=== PATIENT | male | born 1945 | race Caucasian/White ===

== ENCOUNTER 2020-12-31 08:56 | Day surgery (SDC) | payer MEDICARE ==
[2020-12-28 12:03] LABS: BASOPHILS % (AUTO) 0.6 % (0-1); EOSINOPHILS # (AUTO) 0.1 X10'3 (0-0.9); EOSINOPHILS % (AUTO) 2.1 % (0-6); LYMPHOCYTES # (AUTO) 1.1 X10'3 (1.1-4.8); LYMPHOCYTES % (AUTO) 18.8 % (21-51); MEAN CORPUSCULAR HGB CONC 33.3 g/dL (33.0-36.5); MEAN PLATELET VOLUME 8.5 FL (7.4-10.4); MONOCYTES # (AUTO) 0.7 X10'3 (0-0.9); MONOCYTES % (AUTO) 12.4 % (2-12); NEUTROPHILS # (AUTO) 3.8 X10'3 (1.8-7.7); NEUTROPHILS % (AUTO) 66.1 % (42-75); PRE OP HEMATOCRIT 38.8 % (42.0-52.0); PRE OP HEMOGLOBIN 12.9 g/dL (14.0-17.9); PRE OP PLATELET COUNT 183 X10'3 (140-440); RED BLOOD COUNT 4.32 X10'6 (4.70-6.10); RED CELL DISTRIBUTION WIDTH 13.3 % (11.5-14.5)
[2020-12-28 12:15] LABS: PRE OP PROTIME 20.3 SECONDS (9.0-12.0)
[2020-12-28 12:22] LABS: ALBUMIN 3.4 G/DL (3.4-5.0); ALBUMIN/GLOBULIN RATIO 0.8 (1.1-1.5); ALKALINE PHOSPHATASE 83 IU/L (46-116); BLOOD UREA NITROGEN 24 MG/DL (7-18); BUN/CREATININE RATIO 20.2 (5.4-32.0); CALCIUM 8.9 MG/DL (8.5-10.1); CHLORIDE 102 MMOL/L (99-107); CREATININE 1.19 MG/DL (0.60-1.10); PRE OP ALT 37 U/L (30-65); PRE OP ANION GAP 7 (8-16); PRE OP AST 27 U/L (10-37); PRE OP BILIRUB, TOTAL 0.6 MG/DL (0.0-1.0); PRE OP GLUCOSE 93 MG/DL (70-104); PRE OP SODIUM 137 MMOL/L (135-145); TOTAL PROTEIN 7.7 G/DL (6.4-8.2); eGFR 59 ML/MIN
[~2020-12-31] VITALS: Ht 182.9 cm; Wt 79.4 kg
[~2020-12-31 08:56] MED LIST: ASCO500C17 PO; CARV6.253 PO; CEPH500C2 PO; CLIN-30 PO; ENAL10TA19 PO; FIBER; LEVO25TA2 PO; LIDOcaine 1% 30ml preserv. free vial ONE; MULT-1085 PO; OMEG100T PO; SPIR25TA5 PO; VITA-3 PO; WARF2.5T82 PO; [UNRECOGNIZED DRUG - CODE]; ceFAZolin 2gm in dextrose, iso 50 ML IV ONE; clindamycin 600mg/D5W 50ml 50 ML IV ONE; famotidine 20mg tablet PO ONE; ringers solution, lacted 1,000 ML IV SCH
[2020-12-31 09:15] VITALS: BP 106/70
[2020-12-31] MEDS ORDERED: BUPIVAcaine/PF 2.5mg/ml (0.25%) 10ml vial ONE (09:58)
[2020-12-31] MEDS ORDERED: MIDAZolam 1 MG/ML 5ML VIAL ONE (11:07)
[2020-12-31] MEDS ORDERED: fentaNYL/PF 50MCG/1 ML 2ML syringe ONE (11:07)
[2020-12-31] MEDS ORDERED: ketorolac trometh. 30mg/ml inj. ONE (11:09)
[2020-12-31 11:54] VITALS: BP 96/63
--- NOTE | 2020-12-31 11:54 | NUR ---
Received from OR via , accompanied by Anesthesiologist DR SCHULTZ and report given by Anesthesiolgist. AWAKENS TO VOICE. VITALS STABLE. DRESSING DI. SHERICE PAIN.
[2020-12-31 12:04] VITALS: BP 98/64
[2020-12-31 12:14] VITALS: BP 93/65
[2020-12-31 12:24] VITALS: BP 100/66
--- NOTE | 2020-12-31 12:34 | NUR ---
AWAKE AND ORIENTED. VITALS STABLE. DRESSING DI. SHERICE PAIN. HOME WITH HIS AT THIS TIME.
== END 2020-12-31 12:34 | disposition home or self-care (01) ==
LOC: PAS 08:56
PROVIDERS: ATTEND Orthopaedic Surgery Hand Surgery
DX: M65.841 Other synovitis and tenosynovitis, right hand (principal); M19.031 Primary osteoarthritis, right wrist; I48.91 Unspecified atrial fibrillation; Z98.890 Other specified postprocedural states; Z96.643 Presence of artificial hip joint, bilateral; Z88.0 Allergy status to penicillin; Z79.01 Long term (current) use of anticoagulants; Z79.899 Other long term (current) drug therapy; Z79.2 Long term (current) use of antibiotics; Z98.49 Cataract extraction status, unspecified eye; Z72.89 Other problems related to lifestyle; Z20.822 Contact with and (suspected) exposure to COVID-19
CPT/HCPCS: 26145; 36415; 80053; 85025; 85610; 85730; 87070; 87075; 87426; 93005; J1885; J2001; J2250; J3010; J3490; 88305; A4215; A4615; J7120

== ENCOUNTER 2021-06-06 06:39 | Day surgery (SDC) | payer MEDICARE ==
[2021-05-30 16:27] LABS: BASOPHILS % (AUTO) 0.3 % (0-1); EOSINOPHILS # (AUTO) 0.2 X10'3 (0-0.9); EOSINOPHILS % (AUTO) 3.2 % (0-6); LYMPHOCYTES # (AUTO) 1.5 X10'3 (1.1-4.8); LYMPHOCYTES % (AUTO) 27.2 % (21-51); MEAN CORPUSCULAR HEMOGLOBIN 29.4 PG (27.0-31.0); MEAN CORPUSCULAR HGB CONC 32.8 g/dL (33.0-36.5); MEAN CORPUSCULAR VOLUME 89.6 FL (78-98); MEAN PLATELET VOLUME 8.7 FL (7.4-10.4); MONOCYTES # (AUTO) 0.6 X10'3 (0-0.9); MONOCYTES % (AUTO) 11.5 % (2-12); NEUTROPHILS # (AUTO) 3.2 X10'3 (1.8-7.7); NEUTROPHILS % (AUTO) 57.8 % (42-75); PRE OP HEMATOCRIT 40.3 % (42.0-52.0); PRE OP HEMOGLOBIN 13.2 g/dL (14.0-17.9); PRE OP PLATELET COUNT 181 X10'3 (140-440)
[2021-05-30 16:36] LABS: PRE OP PROTIME 29.8 SECONDS (9.0-12.0)
[2021-05-30 16:40] LABS: ALBUMIN 3.6 G/DL (3.4-5.0); ALBUMIN/GLOBULIN RATIO 0.8 (1.1-1.5); ALKALINE PHOSPHATASE 76 IU/L (46-116); BLOOD UREA NITROGEN 23 MG/DL (7-18); BUN/CREATININE RATIO 17.7 (5.4-32.0); CALCIUM 8.6 MG/DL (8.5-10.1); CHLORIDE 105 MMOL/L (99-107); PRE OP ALT 50 U/L (30-65); PRE OP ANION GAP 5 (8-16); PRE OP AST 27 U/L (10-37); PRE OP BILIRUB, TOTAL 0.4 MG/DL (0.0-1.0); PRE OP GLUCOSE 92 MG/DL (70-104); PRE OP POTASSIUM 4.3 MMOL/L (3.4-5.1); PRE OP SODIUM 140 MMOL/L (135-145); TOTAL CARBON DIOXIDE 30.2 MMOL/L (24-32); eGFR 54 ML/MIN
[2021-06-06] VITALS (9 sets, daily range): BP systolic 105–138; BP diastolic 69–84
[~2021-06-06] VITALS: Ht 182.9 cm; Wt 83.2 kg
[~2021-06-06 06:39] MED LIST changes: +BUPIVAcaine/PF 2.5mg/ml (0.25%) 10ml vial ONE; +CA/MAG/ZINC PO; -CEPH500C2 PO; -CLIN-30 PO; +DOCU-272 PO; +DOCUMENT DATE & TIME OF BETA-BLOCKER PO ONE; -LIDOcaine 1% 30ml preserv. free vial ONE; -[UNRECOGNIZED DRUG - CODE]; -ceFAZolin 2gm in dextrose, iso 50 ML IV ONE
[2021-06-06 08:21] LABS: PRE OP PARTIAL THROMB. TIME 38 SECONDS (22-32)
[2021-06-06] MEDS ORDERED: LIDOcaine 0.5% (5mg/ml) 50ml vial ONE (08:29)
[2021-06-06] MEDS ORDERED: midazolam 1 mg/ML 2ml injection ONE (08:33)
[2021-06-06] MEDS ORDERED: fentaNYL/PF 50MCG/1 ML 2ML syringe ONE (08:33)
[2021-06-06] MEDS ORDERED: morphine 4 MG/ML inj SYRINge IV PRN (09:10)
[2021-06-06] MEDS ORDERED: morphine 2 MG/ML inj. syringe IV PRN (09:10)
[2021-06-06] MEDS ORDERED: meperidine/PF 25mg/ml syringe IV PRN ×3 (09:10)
[2021-06-06] MEDS ORDERED: proCHLORperazine 10 MG/2 ml inj IV PRN (09:10)
[2021-06-06] MEDS ORDERED: ondansetron/PF 4mg/2ml inj IV PRN (09:10)
[2021-06-06] MEDS ORDERED: ringers solution, lacted 1,000 ML IV SCH (09:10)
--- NOTE | 2021-06-06 09:28 | NUR ---
Received from OR via , accompanied by Anesthesiologist DR FINE and report given by Anesthesiolgist. PT PRESENTS WITH 20G LEFT FOREARM, DRESSING ON RIGHT HAND DRY AND INTACT. VSS. Addendum: 06/06/21 at 0933 by Jacki Chapin RN, RN Amended: Links added.
--- NOTE | 2021-06-06 10:38 | NUR ---
PATIENT A&OX4, DENIES PAIN, V/S STABLE. I HAVE REVIEWED D/C ORDERS WITH PATIENT AND HIS AND THEY HAVE VERBALIZED UNDERSTANDING. PATIENT D/C HOME WITH ALL BELONGINGS AND GAVE TRANSPORT. PT SENT HOME WITH ICE PACK. Addendum: 06/06/21 at 1051 by Jacki Chapin RN, RN Amended: Links added.
== END 2021-06-06 10:38 | disposition home or self-care (01) ==
LOC: PAS 06:39
PROVIDERS: ATTEND Orthopaedic Surgery Hand Surgery
DX: M25.641 Stiffness of right hand, not elsewhere classified (principal); M65.841 Other synovitis and tenosynovitis, right hand; M19.031 Primary osteoarthritis, right wrist; M19.032 Primary osteoarthritis, left wrist; M18.12 Unilateral primary osteoarthritis of first carpometacarpal joint, left hand; I48.91 Unspecified atrial fibrillation; E03.9 Hypothyroidism, unspecified; Z79.01 Long term (current) use of anticoagulants; Z79.899 Other long term (current) drug therapy; Z88.0 Allergy status to penicillin; Z98.49 Cataract extraction status, unspecified eye; Z98.890 Other specified postprocedural states; Z72.89 Other problems related to lifestyle; Z96.643 Presence of artificial hip joint, bilateral
CPT/HCPCS: 26442; 36415; 71046; 80053; 82948; 85025; 85610; 85730; J2001; J2250; J3010; J3490; J7120; Z7506; Z7512; A4215; A4618; A7000